=== PATIENT | female | born 1995 | race Caucasian/White ===

== ENCOUNTER 2021-05-04 08:17 | Day surgery (SDC) | payer MEDICAID, OTHER ==
[~2021-05-04 08:17] MED LIST: Lactated Ringers 1,000 ML IV SCH; Lidocaine 1%/Sod Bicarbonate in NS 8.4% 1 ML Syringe IDERM PRN; Sodium Chloride 0.9% 10 ML Syringe FLUSH PRN
[2021-05-04] MEDS ORDERED: Midazolam 1 MG/ML 2 ML SDV ONE (08:29)
[2021-05-04] MEDS ORDERED: Propofol 200 MG/20 ML SDV ONE (08:29)
[2021-05-04] MEDS ORDERED: fentaNYL 100 MCG/2 ML SDV ONE (08:29)
--- NOTE | 2021-05-04 09:52 | PCM.PREANE ---
Preanesthetic Assessment - Procedure Proposed Procedure: Left carpal tunnel syndrome - Anesthesia/Transfusion/Family Hx Anesthesia History: Prior Anesthesia Without Reaction Family History of Anesthesia Reaction: No Transfusion History: No Prior Transfusion(s) - Review of Systems General: No Symptoms Pulmonary: No Symptoms Cardiovascular: No Symptoms Gastrointestinal: Abdominal Pain (hunger pains) Neurological: Tingling (left hand carpal tunnel syndrome) Other: Reports: None - Physical Assessment NPO Status Date: 05/03/21 NPO Status Time: 00:00 Vital Signs: Last Vital Signs Temp 36.6 C 05/04/21 08:10 Pulse 78 05/04/21 08:10 Resp 16 05/04/21 08:10 BP 118/66 05/04/21 08:10 Pulse Ox 97 05/04/21 08:10 Height: 1.65 m Weight: 114.305 kg ASA Class: 3 Mental Status: Alert & Oriented x3 Airway Class: Mallampati = 1 Dentition: Reports: Normal Dentition Thyro-Mental Finger Breadths: 3 Mouth Opening Finger Breadths: 3 ROM/Head Extension: Full Lungs: Clear to Auscultation, Normal Respiratory Effort Cardiovascular: Regular Rate, Regular Rhythm - Lab Values: Laboratory Last Values Urine HCG, Qual Negative (NEGATIVE) 05/04/21 08:15 - Allergies Allergies/Adverse Reactions: Allergies Allergy/AdvReac Type Severity Reaction Status Date / Time Penicillins Allergy Rash Verified 05/03/21 14:33 - Blood Blood Available: No Product(s) Available: None - Anesthesia Plan Pre-Op Medication Ordered: None - Acknowledgements Anesthesia Type Planned: MAC Pt an Appropriate Candidate for the Planned Anesthesia: Yes Alternatives and Risks of Anesthesia Discussed w Pt/Guardian: Yes Pt/Guardian Understands and Agrees with Anesthesia Plan: Yes PreAnesthesia Questionnaire Respiratory History: Reports: Asthma Other Respiratory History: as a child Gastrointestinal History: Reports: GERD Neurological History: Reports: Migraines Psychiatric History: Reports: Anxiety, Depression, Panic Attack - Past Surgical History HEENT Surgical History: Reports: Oral Surgery Other HEENT Surgeries/Procedures: dental extractions Respiratory Surgical History: Reports: None GI Surgical History: Reports: Cholecystectomy Other GI Surgeries/Procedures: 2018 Neurological Surgical History: Reports: None - SUBSTANCE USE Tobacco Use Status *Q: Current Every Day Tobacco User Tobacco Use Within Last Twelve Months: Cigarettes Second Hand Smoke Exposure: Yes Days Per Week of Alcohol Use: 2 Number of Drinks Per Day: 2 Total Drinks Per Week: 4 Recreational Drug Use History: Yes Recreational Drug Type: Reports: Marijuana/Hashish - HOME MEDS Home Medications: Home Meds Ashrolandodha Root Extract 300 mg PO DAILY 05/03/21 [History] Cholecalciferol (Vitamin D3) [Vitamin D3] 5,000 units PO DAILY 05/03/21 [History] Chromium/Herbal Complex No.238 [Green Tea Caplet] 1 tab PO DAILY 05/03/21 [History] Cinnamon Bark [Cinnamon] 500 mg PO DAILY 05/03/21 [History] Escitalopram Oxalate 20 mg PO DAILY 05/03/21 [History] Fish Oil/Borage/Flax/Om3,6,9 1 [[place] 3-6-9 Complex Softgel] 400 mg PO DAILY 05/03/21 [History] Hydrocodone/Acetaminophen [HYDROcodone-Acetaminophen 5-325 MG] 1 - 2 each PO Q6H PRN #10 tablet 05/03/21 [Rx] Ibuprofen [Advil] 400 mg PO ASDIRECTED PRN 05/03/21 [History] Multivitamin 1 tab PO DAILY 05/03/21 [History] Tumeric/Ging/[place]/Oreg/Capryl [Candicidal Capsule] 1 cap PO DAILY 05/03/21 [History] medroxyPROGESTERone [Depo-Provera Contraceptive] 150 mg IM ASDIRECTED 05/03/21 [History] methylPREDNISolone [Medrol] 4 mg PO DAILY 05/03/21 [History] - CURRENT (IN HOUSE) MEDS Current Meds: Current Medications Lactated Ringer's (Ringers, Lactated) 1,000 mls @ 125 mls/hr IV ASDIRECTED CURTIS Stop: 05/04/21 23:00 Last Admin: 05/04/21 08:40 Dose: 125 mls/hr Documented by: Lidocaine/Sodium Bicarbonate (Lidocaine 1%/Sod Bicarbonate In Ns 8.4% 1 Ml Syringe) 0.25 ml IDERM ONETIME PRN PRN Reason: Prior to IV Start Stop: 05/04/21 18:00 Last Admin: 05/04/21 08:39 Dose: 0.25 ml Documented by: Sodium Chloride (Sodium Chloride 0.9% 10 Ml Syringe) 10 ml FLUSH ASDIRECTED PRN PRN Reason: Keep Vein Open Stop: 05/04/21 18:00 Discontinued Medications Fentanyl (Fentanyl 100 Mcg/2 Ml Sdv) Confirm Administered Dose 100 mcg .ROUTE .STK-MED ONE Stop: 05/04/21 08:30 Midazolam HCl (Midazolam 1 Mg/Ml 2 Ml Sdv) Confirm Administered Dose 2 mg .ROUTE .STK-MED ONE Stop: 05/04/21 08:30 Propofol (Propofol 200 Mg/20 Ml Sdv) Confirm Administered Dose 400 mg .ROUTE .STK-MED ONE Stop: 05/04/21 08:30
[2021-05-04] MEDS ORDERED: Lidocaine 1% 30 ML SDV ONE (10:33)
[2021-05-04] MEDS ORDERED: Bupivacaine 0.25% 10 ML SDV ONE (10:33)
[2021-05-04] MEDS ORDERED: Ketamine 500 mg/10 ML MDV ONE (10:44)
[2021-05-04] MEDS ORDERED: Lactated Ringers 1,000 ML ONE (11:19)
--- NOTE | 2021-05-04 11:48 | PCM48HPAN ---
Post Anesthesia Note - EVALUATION WITHIN 48HRS OF ANESTHETIC Vital Signs in Normal Range: Yes Patient Participated in Evaluation: Yes Respiratory Function Stable: Yes Airway Patent: Yes Cardiovascular Function Stable: Yes Hydration Status Stable: Yes Pain Control Satisfactory: Yes Nausea and Vomiting Control Satisfactory: Yes Mental Status Recovered: Yes Vital Signs: Last Vital Signs Temp 97.8 F 05/04/21 08:10 Pulse 78 05/04/21 08:10 Resp 16 05/04/21 08:10 BP 118/66 05/04/21 08:10 Pulse Ox 97 05/04/21 08:10 Vital signs at 1135: 119/59 HR 61 18 97.3
--- NOTE | 2021-05-18 08:42 | PCM.OPNOTE ---
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
--- NOTE | 2021-05-18 09:02 | OR ---
DATE OF OPERATION: 05/04/2021 SURGEON: Chris Klein MD OPERATION PERFORMED: Left carpal tunnel release. PREOPERATIVE DIAGNOSIS: Left median nerve compression neuropathy. POSTOPERATIVE DIAGNOSIS: Left median nerve compression neuropathy. ANESTHESIA: Local MAC. ANESTHESIA PROVIDER: Po Glynn. STUDIO ARTIST: Lia Hutton PA-C. ESTIMATED BLOOD LOSS: Less than 5 mL. COMPLICATIONS: None. CONDITION: Stable. DESCRIPTION OF PROCEDURE: The patient was identified in the preop holding area. Proper site was marked and identified by the surgeon. The patient was taken back to the operating theater where after adequate anesthesia, the patient's left upper extremity was sterilely prepped and draped in the usual sterile fashion. OR time-out was performed. The patient did not receive antibiotics and it is not indicated for soft tissue hand procedure. At this time, the left upper extremity was exsanguinated and an Esmarch was used as a tourniquet on the forearm. At this time, using 1% lidocaine without epinephrine and 0.25% Marcaine without epinephrine, the palmar cutaneous branch of the median nerve was anesthetized and then the incisional site was anesthetized using [place] cardinal line and ulnar border of the fourth digit as reference. Once this had set up, an incision was made. Blunt dissection was taken down to the palmar cutaneous fascia. Palmar cutaneous fascia was incised with a [place] blade. At this time, the transverse carpal ligament was identified. A small rent was made in the transverse carpal ligament with a [place] blade under direct visualization. Resection of the transverse carpal ligament was done distally using tenotomy scissors making sure to stop short of the palmar arch. At this time, attention was turned proximally after it was found to be adequately released. Using the tenotomy scissors keeping the tips ulnar to protect the palmar cutaneous branch of the median nerve, the superficial forearm fascia as well as the transverse carpal ligament were resected proximally. It was found to be adequate release both proximally and distally. At this time, adequate saline was irrigated through the wound. 4-0 nylon sutures were used closure of the skin. The patient was placed in a sterile soft dressing and sent to PACU in stable condition. MMODAL /[id number]
== END 2021-05-04 12:16 | disposition home or self-care (01) ==
LOC: JD.SDS 08:17
PROVIDERS: ATTEND Orthopaedic Surgery
DX: G56.03 Carpal tunnel syndrome, bilateral upper limbs (principal); G56.12 Other lesions of median nerve, left upper limb; R53.83 Other fatigue; F17.210 Nicotine dependence, cigarettes, uncomplicated; E66.9 Obesity, unspecified; Z68.41 Body mass index [BMI] 40.0-44.9, adult; Z79.899 Other long term (current) drug therapy
CPT/HCPCS: 64721; 81025; J2250; J2704; J3010; J3490; J7120; 01810

== ENCOUNTER 2022-02-19 20:35 | Emergency (ER) | payer BC, OTHER ==
[2022-02-19] MEDS ORDERED: Ketorolac 30 MG/ML SDV IM ONE (21:06)
[2022-02-19] MEDS ORDERED: Metoclopramide 10 MG/2 ML SDV IM ONE (21:06)
[2022-02-19] MEDS ORDERED: diphenhydrAMINE 50 MG/ML SDV IM ONE (21:06)
[2022-02-19] MEDS ORDERED: HYDROmorphone 0.5 MG/0.5 ML Syringe IM ONE (22:55)
== END 2022-02-19 23:35 | disposition home or self-care (01) ==
LOC: JD.ED 20:35
DX: G43.909 Migraine, unspecified, not intractable, without status migrainosus (principal); K21.9 Gastro-esophageal reflux disease without esophagitis; Z88.0 Allergy status to penicillin
CPT/HCPCS: 96372; 99283; J1170; J1200; J1885; J2765

== ENCOUNTER 2023-11-15 16:05 | Observation (INO) | payer BC ==
[2023-11-15] MEDS ORDERED: Sodium Chloride 0.9% 10 ML Syringe FLUSH PRN (16:17)
[2023-11-15] MEDS ORDERED: Ondansetron 4 MG/2 ML SDV IVPUSH PRN (16:17)
[2023-11-15] MEDS ORDERED: Lidocaine 1% 50 ML MDV INJECT PRN (16:17)
[2023-11-15] MEDS ORDERED: Calcium Carbonate 500 MG Tab.Chew PO PRN (16:17)
[2023-11-15] MEDS ORDERED: Nalbuphine HCl 10 MG/ 1ML Amp IVPUSH PRN (16:17)
[2023-11-15] MEDS ORDERED: Oxytocin/Lactated Ringers 30 UNIT/500 ML BAG IV SCH ×2 (16:30)
[2023-11-15] MEDS ORDERED: Lactated Ringers 1,000 ML IV SCH (16:30)
[2023-11-15 16:52] LABS: BASOPHILS ABSOLUTE AUTO 0.1 K/mm3 (0.0-0.2); BASOPHILS PERCENT AUTO 0.4 % (0.0-1.0); EOSINOPHILS ABSOLUTE AUTO 0.2 K/mm3 (0.0-0.4); EOSINOPHILS PERCENT AUTO 1.4 % (0.0-6.0); HEMATOCRIT 36.3 % (37.0-47.0); HEMOGLOBIN 12.5 gm/dl (12.0-16.0); IMMATURE GRAN ABSOLUTE AUTO 0.17 K/mm3 (0.00-0.05); IMMATURE GRAN PERCENT AUTO 1.2 % (0.0-0.4); LYMPHOCYTES ABSOLUTE AUTO 2.7 K/mm3 (1.0-4.8); LYMPHOCYTES PERCENT AUTO 19.4 % (24.0-44.0); MEAN CORPUSCULAR HEMOGLOBIN 29.8 pg (28.0-32.0); MEAN CORPUSCULAR HGB CONC 34.4 g/dl (32.0-36.0); MEAN CORPUSCULAR VOLUME 86.4 fl (83.0-99.0); MEAN PLATELET VOLUME 11.1 fl (9.4-12.3); MONOCYTES ABSOLUTE AUTO 0.7 K/mm3 (0.0-0.8); MONOCYTES PERCENT AUTO 4.8 % (0.0-8.0); NEUTROPHILS PERCENT AUTO 72.8 % (41.0-71.0); PLATELET COUNT,PLT 177 K/mm3 (150-400); WHITE BLOOD CELL COUNT,WBC 13.67 K/mm3 (3.9-11.3)
[2023-11-15 18:42] LABS: CREATININE 0.6 mg/dL (0.55-1.02); EST CRCL DRUG DOSING (CG) 128.35 mL/min; URIC ACID 5.8 mg/dL (2.6-6.0)
[2023-11-15 19:17] LABS: CREATININE,URINE RAND 35.6 mg/dL (30.0-125.0)
[2023-11-15 19:28] LABS: PROTEIN,URINE RANDOM < 6.0 mg/dL (0.0-11.8)
[2023-11-15] MEDS ORDERED: Naloxone 0.4 MG/ML SDV IVPUSH PRN (20:17)
[2023-11-15] MEDS ORDERED: Sennosides 8.6 MG Tab PO PRN (20:17)
[2023-11-15] MEDS ORDERED: oxyCODONE 5 MG Tab PO PRN (20:17)
[2023-11-15] MEDS ORDERED: diphenhydrAMINE 50 MG/ML SDV IVPUSH PRN (20:17)
[2023-11-15] MEDS ORDERED: ePHEDrine 50 MG/ML SDV IVPUSH PRN (20:17)
[2023-11-15] MEDS ORDERED: Dextrose 5%-Lactated Ringers 1,000 ML IV SCH (20:30)
[2023-11-15] MEDS ORDERED: Acetaminophen 325 MG Tab PO SCH (20:30)
[2023-11-15] MEDS ORDERED: Sodium Chloride 0.9% 10 ML Syringe FLUSH SCH (21:00)
[2023-11-15] MEDS ORDERED: Ibuprofen 600 MG Tab PO SCH (23:30)
[2023-11-16] MEDS ORDERED: Sertraline 50 MG Tab PO SCH (09:00)
[2023-11-16] MEDS ORDERED: Non-Formulary Medication 1 Each (Omeprazole Magnesium [Prilosec Otc] 20 MG Tablet.Dr) PO SCH (09:00)
== END 2023-11-15 20:25 | disposition home or self-care (01) ==
LOC: JD.OB 16:05
PROVIDERS: ADMIT Obstetrics & Gynecology; ATTEND Obstetrics & Gynecology
DX: O32.1XX0 Maternal care for breech presentation, not applicable or unspecified (principal)
CPT/HCPCS: 36415; 59025; 82565; 82570; 83615; 84156; 84450; 84460; 84520; 84550; 85025; 86592; 86850; 86900; 86901; J7120

== ENCOUNTER 2023-11-18 05:08 | Observation (INO) | payer BC ==
[2023-11-18] MEDS ORDERED: Sodium Chloride 0.9% 10 ML Syringe FLUSH PRN ×2 (05:41→07:05)
[2023-11-18] MEDS ORDERED: Lactated Ringers 1,000 ML IV SCH (05:45)
[2023-11-18 06:07] LABS: BASOPHILS ABSOLUTE AUTO 0.1 K/mm3 (0.0-0.2); BASOPHILS PERCENT AUTO 0.7 % (0.0-1.0); EOSINOPHILS ABSOLUTE AUTO 0.2 K/mm3 (0.0-0.4); EOSINOPHILS PERCENT AUTO 1.2 % (0.0-6.0); HEMATOCRIT 35.6 % (37.0-47.0); HEMOGLOBIN 12.2 gm/dl (12.0-16.0); IMMATURE GRAN ABSOLUTE AUTO 0.21 K/mm3 (0.00-0.05); IMMATURE GRAN PERCENT AUTO 1.7 % (0.0-0.4); LYMPHOCYTES ABSOLUTE AUTO 2.4 K/mm3 (1.0-4.8); LYMPHOCYTES PERCENT AUTO 19.3 % (24.0-44.0); MEAN CORPUSCULAR HEMOGLOBIN 29.7 pg (28.0-32.0); MEAN CORPUSCULAR HGB CONC 34.3 g/dl (32.0-36.0); MEAN CORPUSCULAR VOLUME 86.6 fl (83.0-99.0); MEAN PLATELET VOLUME 11.3 fl (9.4-12.3); MONOCYTES ABSOLUTE AUTO 0.7 K/mm3 (0.0-0.8); MONOCYTES PERCENT AUTO 5.9 % (0.0-8.0); NEUTROPHILS ABSOLUTE AUTO 8.8 K/mm3 (1.8-7.7); NEUTROPHILS PERCENT AUTO 71.2 % (41.0-71.0); PLATELET COUNT,PLT 172 K/mm3 (150-400); RED BLOOD CELL COUNT 4.11 M/mm3 (4.10-5.30)
[2023-11-18] MEDS: Lactated Ringers 1,000 ML IV SCH (06:50)
[2023-11-18] MEDS: Oxytocin/Lactated Ringers 30 UNIT/500 ML BAG IV SCH (06:50)
[2023-11-18] MEDS ORDERED: Nalbuphine HCl 10 MG/ 1ML Amp IVPUSH PRN (07:05)
[2023-11-18] MEDS ORDERED: Ondansetron 4 MG/2 ML SDV IVPUSH PRN (07:05)
[2023-11-18] MEDS ORDERED: Lidocaine 1% 50 ML MDV INJECT PRN (07:05)
[2023-11-18] MEDS ORDERED: Oxytocin/Lactated Ringers 30 UNIT/500 ML BAG IV SCH (07:15)
[2023-11-18] MEDS ORDERED: Sodium Chloride 0.9% 10 ML Syringe FLUSH SCH (09:00)
[2023-11-18] MEDS ORDERED: Acetaminophen 325 MG Tab PO PRN (14:16)
[2023-11-18] MEDS: Witch Hazel Medicated Pads 40/Jar TOP PRN (14:30)
[2023-11-18] MEDS: Benzocaine/Menthol 20%-0.5% Spray 78 GM Cannister TOP PRN (14:31)
[2023-11-18] MEDS: Docusate Sodium 100 MG Cap PO PRN (17:08)
[2023-11-18] MEDS: Citric Acid/Sodium Citrate Solution 30 ML Cup PO ONE (19:31)
[2023-11-18] MEDS: Metoclopramide 10 MG/2 ML SDV IVPUSH ONE (19:31)
[2023-11-18] MEDS: Sodium Chloride 0.9% 10 ML Syringe FLUSH SCH (19:31)
[2023-11-19] MEDS: Ibuprofen 600 MG Tab PO PRN (15:14)
== END 2023-11-19 18:45 | disposition home or self-care (01) ==
LOC: JD.OB 05:32
PROVIDERS: ADMIT Obstetrics & Gynecology; ATTEND Obstetrics & Gynecology
DX: O32.0XX0 Maternal care for unstable lie, not applicable or unspecified (principal); Z3A.39 39 weeks gestation of pregnancy; Z37.0 Single live birth
CPT/HCPCS: 36415; 59025; 59409; 85025; 86850; 86900; 86901; A9270-GY; J7120; J7999

== ENCOUNTER 2024-06-09 18:39 | Emergency (ER) | payer BC | END 2024-06-09 19:33 | disposition left against medical advice (07) | LOC: JD.ED 18:39 | DX: Z53.21 Procedure and treatment not carried out due to patient leaving prior to being seen by health care provider (principal) ==

== ENCOUNTER 2025-08-30 09:50 | Emergency (ER) | payer OTHER, MEDICAID ==
[2025-08-30] MEDS ORDERED: Sodium Chloride 0.9% 10 ML Syringe FLUSH PRN (10:08)
[2025-08-30 10:44] LABS: A/G RATIO 1.1 (1-2); ALANINE AMINOTRANSFERASE,ALT 29.0 U/L (14-59); ASPARTATE AMNIOTRANSFERASE,AST 14.0 U/L (15-37); BILIRUBIN TOTAL 0.5 mg/dL (0.2-1.0); BLOOD UREA NITROGEN,BUN 7.0 mg/dL (7-18); CARBON DIOXIDE,CO2 23.0 mEq/L (21-32); CHLORIDE,CL 104.0 mEq/L (98-107); CREATININE 0.9 mg/dL (0.55-1.02); EST CRCL DRUG DOSING (CG) 84.01 mL/min; ESTIMATED GFR 87.0 mL/min (>60); GLUCOSE RANDOM 116.0 mg/dL (70-99); POTASSIUM,K 3.8 mEq/L (3.5-5.1); PROTEIN TOTAL,TP 6.7 g/dl (6.4-8.2); SODIUM,NA 138.0 mEq/L (136-145)
[2025-08-30 10:47] LABS: BASOPHILS ABSOLUTE AUTO 0.1 K/mm3 (0.0-0.2); BASOPHILS PERCENT AUTO 0.6 % (0.0-1.0); EOSINOPHILS ABSOLUTE AUTO 0.2 K/mm3 (0.0-0.4); EOSINOPHILS PERCENT AUTO 1.5 % (0.0-6.0); IMMATURE GRAN ABSOLUTE AUTO 0.09 K/mm3 (0.00-0.05); IMMATURE GRAN PERCENT AUTO 0.8 % (0.0-0.4); LYMPHOCYTES ABSOLUTE AUTO 2.3 K/mm3 (1.0-4.8); LYMPHOCYTES PERCENT AUTO 21.9 % (24.0-44.0); MEAN PLATELET VOLUME 11.1 fl (9.4-12.3); MONOCYTES ABSOLUTE AUTO 0.5 K/mm3 (0.0-0.8); MONOCYTES PERCENT AUTO 4.3 % (0.0-8.0); NEUTROPHILS ABSOLUTE AUTO 7.6 K/mm3 (1.8-7.7); NEUTROPHILS PERCENT AUTO 70.9 % (41.0-71.0); NRBC ABSOLUTE 0.00 (0.00-0.02); NRBC PERCENT 0.0 % (0.0-0.2); PLATELET COUNT,PLT 188 K/mm3 (150-400); RED BLOOD CELL COUNT 4.89 M/mm3 (4.10-5.30); WHITE BLOOD CELL COUNT,WBC 10.66 K/mm3 (3.9-11.3)
[2025-08-30] MEDS: Ketorolac 30 MG/ML SDV IVPUSH ONE (11:41)
== END 2025-08-30 11:44 | disposition home or self-care (01) ==
LOC: JD.ED 09:50
DX: S09.90XA Unspecified injury of head, initial encounter (principal); S16.1XXA Strain of muscle, fascia and tendon at neck level, initial encounter; S33.8XXA Sprain of other parts of lumbar spine and pelvis, initial encounter; S93.602A Unspecified sprain of left foot, initial encounter; M54.6 Pain in thoracic spine; M54.50 Low back pain, unspecified; Z88.0 Allergy status to penicillin; Z86.16 Personal history of COVID-19; Z90.49 Acquired absence of other specified parts of digestive tract; W19.XXXA Unspecified fall, initial encounter
CPT/HCPCS: 36415; 70450; 71045; 72070; 72125; 72131; 73630; 80053; 83690; 85025; 96374; 96375; 99284; J1885; J1171